=== PATIENT | male | born 1945 | race Caucasian/White ===

== ENCOUNTER → 2017-03-04 | Outpatient (CLI) | payer MEDICARE, OTHER ==
[~2017-03-04] MED LIST: ALLO300T PO; AMOX1TAB61 PO; DEXA4TAB PO; MELO15TA23 PO; OMEG500C PO; OXYC1TAB9 PO; SILD100T PO; [UNRECOGNIZED DRUG - CODE] PO
--- NOTE | 2017-03-04 12:19 | RAD ---
Exam performed: 2 views of the chest. Indication: CHRONIC OBSTRUCTIVE PULMONARY DISEASE. Date of Service:03/04/2017 2:00 AM . Comparison : None available. Findings: PA and lateral radiographs of the chest reveal a normal cardiomediastinal contour. The lungs are clear. No pleural fluid is seen. The visualized osseous structures are unremarkable. Impression: No acute cardiopulmonary process seen..
== END | disposition home or self-care (01) ==
LOC: LAB 11:32
PROVIDERS: ATTEND Internal Medicine Critical Care Medicine
DX: J44.9 Chronic obstructive pulmonary disease, unspecified (principal)
CPT/HCPCS: 71020

== ENCOUNTER → 2017-07-12 | Outpatient (CLI) | payer MEDICARE, OTHER ==
[2017-07-12] MEDS: LIDOCAINE 1% Multi-Dose 20 ML VIAL. ID (10:40)
[2017-07-12] MEDS: IOHEXOL 300 MG/ML 100ML VIAL. IT (10:40)
== END | disposition home or self-care (01) ==
LOC: KCIC 09:49
DX: M48.02 Spinal stenosis, cervical region (principal); M50.21 Other cervical disc displacement, high cervical region; M47.892 Other spondylosis, cervical region; M12.88 Other specific arthropathies, not elsewhere classified, other specified site; W19.XXXA Unspecified fall, initial encounter; Y93.89 Activity, other specified; Y92.89 Other specified places as the place of occurrence of the external cause; Y99.8 Other external cause status
CPT/HCPCS: 72126; 72240; Q9967

== ENCOUNTER → 2017-08-02 | Outpatient (CLI) | payer MEDICARE, OTHER | END | disposition home or self-care (01) | LOC: KCIC CT 10:04 | DX: R51 Headache (principal); R42 Dizziness and giddiness; H53.8 Other visual disturbances | CPT/HCPCS: 70450 ==

== ENCOUNTER → 2018-03-21 | Outpatient (CLI) | payer MEDICARE, OTHER ==
[~2018-03-21] MED LIST changes: +OXYC-411 PO; -OXYC1TAB9 PO
--- NOTE | 2018-03-21 17:32 | KCIC ---
CT CHEST WO CONTRAST Indication: Interstitial lung disease, productive cough, worked around asbestos for 30 years Technique: Noncontrast CT imaging was performed of the chest, multiplanar reconstruction images submitted. One or more of the following individualized dose reduction techniques were utilized for this examination: 1. Automated exposure control 2. Adjustment of the mA and/or kV according to patient size 3. Use of iterative reconstruction technique. Contrast: None Comparison: None Findings: There is no pleural or pericardial effusion, pneumothorax, infiltrate, honeycombing. No appreciable septal thickening is identified. Major airways are patent. No calcified pleural plaques are identified. There is coronary calcification. Tubular ascending thoracic aorta is dilated about 4.1 cm. There is cholelithiasis. There is left renal calculus about 0.8 cm. 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 There are thoracic spinal stimulator leads. There is shared origin of the brachiocephalic and left common carotid arteries. Minimal density in the trachea is probably due to mucus. IMPRESSION: 1. There is no infiltrate or pleural plaque. 2. There is coronary calcification. 3. There is dilatation of the ascending thoracic aorta 4.1 cm. 4. There is cholelithiasis. 5. There is left renal calculus. 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 Electronically signed by: Jamshid Garza MD (03/21/2018 5:29 PM) [email or web address]
== END | disposition home or self-care (01) ==
LOC: KCIC CT 10:43
PROVIDERS: ATTEND Internal Medicine Critical Care Medicine
DX: I25.10 Atherosclerotic heart disease of native coronary artery without angina pectoris (principal); K80.20 Calculus of gallbladder without cholecystitis without obstruction; N20.0 Calculus of kidney; J44.9 Chronic obstructive pulmonary disease, unspecified; M17.9 Osteoarthritis of knee, unspecified
CPT/HCPCS: 71250

== ENCOUNTER → 2018-06-15 | Outpatient (CLI) | payer MEDICARE, OTHER ==
--- NOTE | 2018-06-15 11:16 | RAD ---
CHEST PA LATERAL Clinical indications: PRE OP FOR KNEE REPLACEMENT ON 07/11/18, HX OF HYPERTENSION The patient is 72 years old. COMPARISON: March 04, 2017. Findings: No acute lung infiltrate or pleural effusion or pulmonary edema or lung mass or pneumothorax is seen. Thoracic spinal canal stimulator device is again evident. The heart size, pulmonary vasculature, mediastinum and both mando are unremarkable. The osseous structures appear intact. Impression: No acute radiographic abnormality is seen. Electronically signed by: Hari Hall MD (06/15/2018 11:12 AM) [facility]
== END | disposition home or self-care (01) ==
LOC: LAB 10:15
PROVIDERS: ATTEND Internal Medicine
DX: Z01.818 Encounter for other preprocedural examination (principal); M17.0 Bilateral primary osteoarthritis of knee; I10 Essential (primary) hypertension
CPT/HCPCS: 71046

== ENCOUNTER → 2018-06-23 | Outpatient (CLI) | payer MEDICARE, OTHER ==
--- NOTE | 2018-06-23 10:40 | CARD ---
MR#: [id number] Date of Study: 06/23/2018 Ordering Physician: SENAIT MUIR, Referring Physician: SENAIT MUIR, Tech: Crystal Lagos APPROVED REPORT EXAM: Two-dimensional and M-mode echocardiogram with Doppler and color Doppler. Other Information Quality : AverageHR: 70bpm INDICATION Pre-Op RISK FACTORS Hypertension 2D DIMENSIONS RVDd3.2 (2.9-3.5cm)Left Atrium(2D)3.5 (1.6-4.0cm) IVSd1.0 (0.7-1.1cm)Aortic Root(2D)3.5 (2.0-3.7cm) LVDd5.7 (3.9-5.9cm)LVOT Diameter2.2 (1.8-2.4cm) PWd1.0 (0.7-1.1cm)LVDs2.3 (2.5-4.0cm) FS (%) 59.0 %SV142.7 ml LVEF(%)88.2 (>50%) Aortic Valve AoV Peak Hair.167.0cm/sAoV VTI33.3cm AO Peak GR.11.2mmHgLVOT Peak Hair.134.7cm/s LVOT VTI 29.42cmAO Mean GR.7mmHg MAYCO (VMAX)2.14ww1DUG (VTI)3.37cm2 Mitral Valve MV E Vtfjslvg45.8cm/sMV DECEL LRSB152ua MV A Wnmldnac24.2cm/sMV SDF46tc E/A Ratio1.4MVA (PHT)4.10cm2 TDI E/Lateral E'6.9E/Medial E'9.2 Pulmonary Valve PV Peak Lyxynvwn059.0cm/sPV Peak Grad.6mmHg Tricuspid Valve TR P. Iqkxfzql621ym/sRAP FHHXEUIC0unVu TR Peak Gr.37ylZcGHJZ95ppFc Pulmonary Vein S1 Cmnyrmxh84.5cm/sD2 Pvnarnmz97.1cm/s PVa dwktdxqf381tkzg LEFT VENTRICLE The left ventricle is normal size. There is normal left ventricular wall thickness. The left ventricu lar systolic function is normal. The Ejection Fraction is 55-60%. There is normal LV segmental wall m otion. The left ventricular diastolic function and filling is normal for age. RIGHT VENTRICLE The right ventricle is normal size. There is normal right ventricular wall thickness. The right ventr icular systolic function is normal. ATRIA The left atrium is mildly dilated. The right atrium size is normal. The interatrial septum is intact with no evidence for an atrial septal defect or patent foramen ovale as noted on 2-D or Doppler imagi ng. AORTIC VALVE The aortic valve is normal in structure and function. Doppler and Color Flow revealed trace aortic re gurgitation. There is no significant aortic valvular stenosis. MITRAL VALVE The mitral valve is normal in structure and function. There is no evidence of mitral valve prolapse. There is no mitral valve stenosis. Doppler and Color-flow revealed trace mitral regurgitation. TRICUSPID VALVE The tricuspid valve is normal in structure and function. Doppler and Color Flow revealed trace tricus pid regurgitation. There is no tricuspid valve stenosis. PULMONIC VALVE The pulmonic valve is not well visualized. Doppler and Color Flow revealed mild pulmonic valvular reg urgitation. GREAT VESSELS The aortic root is normal in size. Normal pulmonary venous flow (Doppler). The IVC is normal in size and collapses >50% with inspiration. PERICARDIAL EFFUSION There is no evidence of significant pericardial effusion. Critical Notification Critical Value: No <Conclusion> The left ventricular systolic function is normal. The Ejection Fraction is 55-60%. There is normal LV segmental wall motion. Trace mitral regurgitation. Trace tricuspid regurgitation. There is no evidence of significant pericardial effusion. Signed by : Senait Muir, Electronically Approved : 06/23/2018 10:38:57
== END | disposition home or self-care (01) ==
LOC: ECHO 09:07
PROVIDERS: ATTEND Internal Medicine Cardiovascular Disease
DX: Z01.810 Encounter for preprocedural cardiovascular examination (principal); I37.1 Nonrheumatic pulmonary valve insufficiency; I10 Essential (primary) hypertension
CPT/HCPCS: 93306

== ENCOUNTER → 2018-06-27 | Outpatient (CLI) | payer MEDICARE, OTHER ==
[~2018-06-27] MED LIST changes: +REGADENOSON 0.4 MG/5 ML DISP.SYRIN. IV ONE
--- NOTE | 2018-06-27 15:10 | RAD ---
MR#: [id number] Date of Study: 06/27/2018 Ordering Physician: SENAIT MOTTA, Referring Physician: SHREE SELBY Tech: SUSAN Perea, ARRT (R) (N) APPROVED REPORT Test Type: Pharmacological Stress Nurse/Tech: Deb Correia RN Test Indications: Preop clearance Cardiac History: Hypertension,COPD Medications: See Electronic Medical Record Medical History: See Electronic Medical Record Resting ECG: SR Resting Heart Rate: 64 bpm Resting Blood Pressure: 126/78mmHg Pretest Chest Pain: No chest pain Nurse/Tech Notes S1,S2 and lungs are clear to auscultation. Consent: The procedure was explained to the patient in lay terms. Informed consent was witnessed. Brian eout was entered into [employer] [facility] [employer]. History and Stress Test performed by DEAN Lainez Pharm. Details Pharmacologic stress testing was performed using 0.4mg per 5ml of regadenoson given intravenously ove r 7-10 seconds. Stress Symptoms Dizziness POST EXERCISE Reason for Termination: Infusion complete Target HR: No Max HR: 94 bpm Max Blood Pressure: 141/66mmHg Blood Pressure response to exercise: Normal blood pressure response during stress. Heart Rate response to exercise: WNL Chest Pain: No. Arrhythmia: No. ST Change: No. INTERPRETATION Stress EKG Conclusion: No evidence of stress induced EKG changes. Imaging Protocol IMAGE PROTOCOL: Rest Tc-99m/stress Tc-99m 1 day Rest: Stress: Viability: Radiopharm.Tc99m HgrrtpvrbJk70a Sestamibi Dose12.4mCi 33.3mCi Img Date 06/27/2018 06/27/2018 Inj-Img Qqcb98bld. 60min. Rest Admin Site:IV - Left AntecubitalAdministrator:DEAN Lainez Stress Admin Site: IV - Left AntecubitalAdministrator: DEAN Lainez STRESS DATA End Diast. Vol.83.0mlAv. Heart Rate87.0bpm LVEDV index BSA35.0mlCardiac Output0.0L/min End Syst. Vol.21.0mlCO Index BSA0.0L/min LVESV index BSA9.0mlMyocardial Xhge584.0g Eject. Pvqixqoe96.0% Stress Scores Regional WT0.00Summed WT0.00 Regional WM0.00Summed WM0.00 The rest and stress images show normal perfusion, normal contraction and thickening. LV Perf. Quant 17 Seg. SSS2.00 17 Seg. SRS4.00 17 Seg. SDS1.00 Stress Defect Extent (% LAD)0.00Rest Defect Extent (% LAD)0.00Rev. Defect Extent (% LAD)0.00 Stress Defect Extent (% LCX) 10.00Rest Defect Extent (% LCX)22.50Rev. Defect Extent (% LCX)5.00 Stress Defect Extent (% RCA)0.00Rest Defect Extent (% RCA)11.10Rev. Defect Extent (% RCA)0.00 Stress Defect Extent (% ROLY)1.70Rest Defect Extent (% ROLY)7.40Rev. Defect Extent (% ROLY)0.90 Other Information Quality:Good Risk Assessment: Low Risk Conclusion 1. No evidence of stress induced EKG changes 2. Normal perfusion at stress/rest. 3. Normal EF at > 70% 4. Low risk study Signed by : Prince Guevara, Electronically Approved : 06/27/2018 15:09:14
== END | disposition home or self-care (01) ==
LOC: NM 09:08
PROVIDERS: ATTEND Internal Medicine Cardiovascular Disease
DX: Z01.810 Encounter for preprocedural cardiovascular examination (principal); I10 Essential (primary) hypertension; J44.9 Chronic obstructive pulmonary disease, unspecified
CPT/HCPCS: 78452; 93017; 96374; A9500; J2785

== ENCOUNTER → 2018-09-07 | Outpatient (CLI) | payer MEDICARE, OTHER ==
[~2018-09-07] MED LIST changes: -REGADENOSON 0.4 MG/5 ML DISP.SYRIN. IV ONE
--- NOTE | 2018-09-07 13:11 | KCIC ---
EXAM: CT Abdomen and Pelvis without IV contrast CLINICAL HISTORY: Back pain, hematuria, evaluate for kidney stone. COMPARISON: None available TECHNIQUE: Helical CT of the abdomen and pelvis without intravenous contrast. Axial, coronal and sagittal reformatted images were generated. PQRS compliance statement - One or more of the following individualized dose reduction techniques were utilized for this study: 1. Automated exposure control 2. Adjustment of the mA and/or kV according to patient size 3. Use of iterative reconstruction technique FINDINGS: Lack of intravenous contrast limits evaluation of solid organs, vasculature, and lymph nodes. Lower chest: Lung bases are grossly clear. Abdomen and Pelvis: No focal liver lesion. Calcified gallstones are seen. No pericholecystic fluid or definite wall thickening. No biliary ductal dilatation. Spleen is unremarkable. Adrenal glands and pancreas are unremarkable. Punctate bilateral nonobstructing renal calculi are seen. A 4 mm right lower pole nonobstructing renal calculus is seen. A 1.2 cm left ureteral calculus is seen resulting in mild left hydronephrosis and hydroureter. Fat-containing lesion in the right interpolar kidney likely angiomyolipoma. No focal renal lesion. No hydronephrosis. Small bladder diverticulum is seen. Fat infiltration about the bladder with mild wall thickening may be seen with cystitis. Appendix is normal. No small or large bowel dilatation. Moderate colonic stool content. Colonic diverticulosis without evidence for acute diverticulitis. No abdominal or pelvic lymphadenopathy. No abdominal or pelvic ascites. Atherosclerotic calcifications of aorta are seen. Fat-containing inguinal hernias bilaterally. Bones: Degenerative changes of the spine are seen. Posterior spinal fusion lower lumbar spine L4-5. IMPRESSION: 1. A 1.2 cm left ureteral calculus results in mild hydronephrosis and hydroureter. 2. Several additional bilateral nonobstructing renal calculi. No 3. Wall thickening and fat infiltration about the bladder suggests cystitis. 4. Cholelithiasis 5. Colonic diverticulosis without evidence for acute diverticulitis. Electronically signed by: Tigre Motta MD (09/07/2018 1:08 PM) [facility]
== END | disposition home or self-care (01) ==
LOC: KCIC CT 12:30
PROVIDERS: ATTEND Urology
DX: N13.2 Hydronephrosis with renal and ureteral calculous obstruction (principal); N13.4 Hydroureter; K80.20 Calculus of gallbladder without cholecystitis without obstruction; K57.30 Diverticulosis of large intestine without perforation or abscess without bleeding
CPT/HCPCS: 74176

== ENCOUNTER → 2020-01-31 | Outpatient (CLI) | payer MEDICARE, OTHER ==
[~2020-01-31] MED LIST changes: -OXYC-411 PO; +OXYC1TAB20 PO
--- NOTE | 2020-01-31 17:21 | KCIC ---
EXAM: Abdomen and pelvis CT without intravenous contrast. HISTORY: Ureteral stone. TECHNIQUE: Computed tomographic images of the abdomen and pelvis were obtained without contrast. Multiplanar reformatting was performed. *One or more of the following individualized dose reduction techniques were utilized for this examination: 1. Automated exposure control. 2. Adjustment of the mA and/or kV according to patient size. 3. Use of iterative reconstruction technique. COMPARISON: 09/07/2018. FINDINGS: Evaluation of the lower thorax is unremarkable. No hepatic lesion is seen. There is cholelithiasis. The pancreas, spleen and adrenal glands are unremarkable. There is no evidence of bowel obstruction. There is extensive colonic diverticulosis. There is no convincing diverticulitis. There is a 1.2 cm angiomyolipoma within the lateral mid zone of the right kidney. There are nonobstructing bilateral renal stones, the largest which measures 3 mm within the left lower pole. The previously demonstrated left ureteral stone is no longer seen. However, there are new calcifications within the bladder measuring 2 mm at the ureterovesical junction and 2 mm within the posterior midline. There is urinary bladder wall thickening. There is a small left bladder diverticulum measuring 1.5 cm. The prostate results in slight deformation of the bladder base. There is aortic and aortic branch vessel atherosclerosis. There is no aneurysm. There is no lymphadenopathy. There are degenerative changes involving the spine. There is instrumented fusion and laminectomy decompression at the lower lumbar levels. No suspicious osseous lesion is seen. There is foraminal and central canal stenosis at multiple lumbar levels, stable in appearance. IMPRESSION: 1. Left greater than right nephrolithiasis. No obstructing renal stone is seen in the previously demonstrated distal left ureteral stone is no longer seen. There are 2 mm stones or stone fragments within the bladder, one of which is at the uterovesical junction. 2. Bladder wall thickening and small left bladder diverticulum. This may be due to chronic outlet obstruction given a prominent prostate. Correlate with urinalysis to exclude cystitis. 3. 1.5 cm right renal angiomyolipoma. 4. Cholelithiasis. 5. Colonic diverticulosis. Electronically signed by: Priya Jaime MD (01/31/2020 5:18 PM) [id number]
== END ==
LOC: KCIC CT 12:41
PROVIDERS: ATTEND Urology
DX: N20.1 Calculus of ureter (principal); N20.0 Calculus of kidney; K57.30 Diverticulosis of large intestine without perforation or abscess without bleeding; K80.20 Calculus of gallbladder without cholecystitis without obstruction; D17.71 Benign lipomatous neoplasm of kidney; N32.3 Diverticulum of bladder
CPT/HCPCS: 74176

== ENCOUNTER → 2020-02-23 | Outpatient (CLI) | payer MEDICARE ==
--- NOTE | 2020-02-23 14:21 | KCIC ---
EXAM: HIP LEFT 1 VIEW WITH PELVIS. HISTORY: Left hip pain. COMPARISON: None. FINDINGS: A transverse fracture of the sacrum is suspected at the S4 level. This appears subacute based on surrounding sclerosis. There is moderately decreased femoral head/neck offset anteriorly on the left. It appears mildly decreased superolaterally on the right. There is chondrocalcinosis of the left acetabular labrum. A small os acetabulum is noted on the right. There is mild superior joint space narrowing at the right hip. Left hip joint spaces appear maintained. L4-5 instrumented anterior and posterior fusion changes are partially visualized. A generator is partially visualized along the left flank. IMPRESSION: 1. Findings consistent with a subacute transverse fracture of the S4 level. A lateral view of the sacrum could confirm this. 2. 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 Mild right hip osteoarthritis. 4. Chondrocalcinosis of the left acetabular labrum. Electronically signed by: Camron Caba MD (02/23/2020 2:19 PM) [id number]
== END | disposition home or self-care (01) ==
LOC: KCIC 10:33
PROVIDERS: ATTEND Internal Medicine
DX: M11.252 Other chondrocalcinosis, left hip (principal); M16.11 Unilateral primary osteoarthritis, right hip
CPT/HCPCS: 73501

== ENCOUNTER → 2020-02-28 | Outpatient (CLI) | payer MEDICARE ==
--- NOTE | 2020-02-29 08:38 | KCIC ---
Examination: 2 views of the sacrum and coccyx HISTORY: History of S4 fracture COMPARISON: 02/23/2020. Findings/ impression: Mild anterolisthesis of S1 on S2. Obvious fracture line is not evident however evaluation is limited due to overlapping bone structures. If pain persists consider CT or MRI for better evaluation. Electronically signed by: Livan Galindo MD (02/29/2020 8:35 AM) [id number]
== END ==
LOC: KCIC 12:43
PROVIDERS: ATTEND Internal Medicine
DX: S32.10XA Unspecified fracture of sacrum, initial encounter for closed fracture (principal); X58.XXXA Exposure to other specified factors, initial encounter; Y93.89 Activity, other specified; Y92.89 Other specified places as the place of occurrence of the external cause; Y99.8 Other external cause status
CPT/HCPCS: 72220

== ENCOUNTER → 2020-03-08 | Outpatient (CLI) | payer MEDICARE ==
--- NOTE | 2020-03-08 15:25 | KCIC ---
EXAM: CT Lumbar Spine without IV contrast INDICATION: Reason: LOW BACK PAIN, LEFT RADICULOPATHY / Spl. Instructions: / History: Chronic pain, previous surgery, spinal cord stimulator TECHNIQUE: Multi-detector row CT images were obtained through the lumbar spine without the use of IV contrast. Post-processing sagittal and coronal reconstructed images were obtained for interpretation. All CT scans performed at this facility utilize dose optimization techniques as appropriate to the exam, including the following: Automated exposure control and adjustment of the mA and/or KV according to patient size (this includes techniques or standardized protocols for targeted exams where dose is indication/reason for exam). COMPARISON: Lumbosacral spine x-rays 02/28/2020, renal stone protocol abdomen pelvis CT 01/31/2020 FINDINGS: The lowest fully formed disc is referred to as the L5-S1 level. ALIGNMENT: Lumbar spinal alignment shows straightening. No anterolisthesis or retrolisthesis is appreciated however there is there is mild rightward lateral listhesis of L2 on L3 7 mm, contributing to levoscoliosis of the lumbar spine, apex at L3-L4.. OSSEOUS: Bones show mild demineralization and endplate osteophytic spurring and sclerosis but no fracture or aggressive appearing osseous lesions are seen. DISC SPACES: At T12-L1, no stenosis. No significant degenerative change. At L1-L2, mild disc space narrowing. No central canal or foraminal stenosis. At L2-L3 bulky right-sided facet hypertrophy, endplate sclerosis with disc space narrowing and subchondral cystic change is present along with a disc osteophyte complex asymmetric to the right. Together these result in severe right foraminal stenosis and moderate left foraminal stenosis. Moderate central canal stenosis is also present. At L3-L4, disc osteophyte complex with asymmetric narrowing on the right, including avoo-fv-vcag contact, subchondral sclerosis and asymmetric disc space narrowing in association with facet hypertrophy results in moderate right foraminal stenosis and only mild left foraminal stenosis. Transverse narrowing of the central canal is present but there has been a posterior decompression with laminectomy at L3, resulting in patency of the central canal. At L4-L5, there is been an interbody fusion with well incorporated graft. There is loss of height at this disc space however an ossified disc material is present, resulting in mild left foraminal stenosis and moderate right foraminal stenosis. Posterior decompressive surgical changes with bilateral laminectomy at L4 are present. Fito and pedicle screw construct posterior fusion is also noted at this level with apparent satisfactory positioning of the pedicle screws and no evidence of hardware loosening, migration or failure. At L5-S1, disc osteophyte complex with ossification in the disc along with mild bilateral facet hypertrophic change results in moderate bilateral foraminal stenoses and moderate central canal narrowing. Bilateral sacroiliac joints are unremarkable. SOFT TISSUES: Scattered atherosclerotic calcifications in the abdominal aorta. IMPRESSION: Multilevel lumbar spinal degenerative spondylosis as described with posterior decompression at L3 and L4 and fito and pedicle screw construct fusion at L4-L5 with interbody graft as described. No fracture or aggressive appearing osseous lesions noted. Electronically signed by: Aby Dejesus MD (03/08/2020 3:23 PM) [id number]
== END | disposition home or self-care (01) ==
LOC: KCIC CT 10:22
PROVIDERS: ATTEND Internal Medicine
DX: M47.26 Other spondylosis with radiculopathy, lumbar region (principal); M43.16 Spondylolisthesis, lumbar region; M25.78 Osteophyte, vertebrae; M46.06 Spinal enthesopathy, lumbar region; M41.86 Other forms of scoliosis, lumbar region; M81.8 Other osteoporosis without current pathological fracture; G95.89 Other specified diseases of spinal cord; I70.0 Atherosclerosis of aorta
CPT/HCPCS: 72131

== ENCOUNTER → 2020-06-07 | Outpatient (CLI) | payer OTHER, MEDICARE ==
--- NOTE | 2020-06-07 17:26 | KCIC ---
EXAM: Pelvis and bilateral hips, 5 views; left shoulder, 3 views; left femur, 2 views. HISTORY: Trauma. Pain. COMPARISON: 02/23/2020. FINDINGS: Pelvis and bilateral hips: A frontal view the pelvis and frontal and frog-leg views of both hips are obtained. There is lateral hip joint space narrowing with degenerative subchondral sclerosis and marginal acetabular and femoral head spurring. There is a right os acetabulum. There is left hip labral calcification. There are multiple pelvic fluid was. There is degenerative and postoperative change involving the lumbar spine. There is a generator within the left flank, partially included on the lvtqc-tx-nqwb. Left shoulder: 3 views of the left shoulder obtained. There is mild left acromioclavicular osteoarthritis with a small chronic fragmented spur. There is no acute fracture, dislocation or subluxation. There are dorsal column stimulator leads at the inferior margin of the belzp-tc-xmcr. Left femur: 2 views left femur are obtained. These are centered at the level of the knee. The proximal femur is excluded from the fwfbr-gs-awwq. There is left knee arthroplasty in expected position. There is no evidence of arthroplasty loosening. There are chronic bone fragments along the superior patella and there are joint loose bodies. There is a trace joint effusion. IMPRESSION: 1. Mild lateral hip osteoarthritis and left acromioclavicular osteoarthritis. 2. Degenerative and postoperative changes involving the lumbar spine, not formally assessed on this exam. 3. Left knee arthroplasty and trace left knee effusion. 4. No acute osseous finding. Electronically signed by: Priya Jaime MD (06/07/2020 5:22 PM) [facility]
--- NOTE | 2020-06-07 17:26 | KCIC ---
EXAM: Pelvis and bilateral hips, 5 views; left shoulder, 3 views; left femur, 2 views. HISTORY: Trauma. Pain. COMPARISON: 02/23/2020. FINDINGS: Pelvis and bilateral hips: A frontal view the pelvis and frontal and frog-leg views of both hips are obtained. There is lateral hip joint space narrowing with degenerative subchondral sclerosis and marginal acetabular and femoral head spurring. There is a right os acetabulum. There is left hip labral calcification. There are multiple pelvic fluid was. There is degenerative and postoperative change involving the lumbar spine. There is a generator within the left flank, partially included on the oeggi-sm-nyzm. Left shoulder: 3 views of the left shoulder obtained. There is mild left acromioclavicular osteoarthritis with a small chronic fragmented spur. There is no acute fracture, dislocation or subluxation. There are dorsal column stimulator leads at the inferior margin of the flonc-hr-npxn. Left femur: 2 views left femur are obtained. These are centered at the level of the knee. The proximal femur is excluded from the lqhhf-ge-qall. There is left knee arthroplasty in expected position. There is no evidence of arthroplasty loosening. There are chronic bone fragments along the superior patella and there are joint loose bodies. There is a trace joint effusion. IMPRESSION: 1. Mild lateral hip osteoarthritis and left acromioclavicular osteoarthritis. 2. Degenerative and postoperative changes involving the lumbar spine, not formally assessed on this exam. 3. Left knee arthroplasty and trace left knee effusion. 4. No acute osseous finding. Electronically signed by: Priya Jaime MD (06/07/2020 5:22 PM) [facility]
--- NOTE | 2020-06-07 17:26 | KCIC ---
EXAM: Pelvis and bilateral hips, 5 views; left shoulder, 3 views; left femur, 2 views. HISTORY: Trauma. Pain. COMPARISON: 02/23/2020. FINDINGS: Pelvis and bilateral hips: A frontal view the pelvis and frontal and frog-leg views of both hips are obtained. There is lateral hip joint space narrowing with degenerative subchondral sclerosis and marginal acetabular and femoral head spurring. There is a right os acetabulum. There is left hip labral calcification. There are multiple pelvic fluid was. There is degenerative and postoperative change involving the lumbar spine. There is a generator within the left flank, partially included on the hytxv-hk-anjy. Left shoulder: 3 views of the left shoulder obtained. There is mild left acromioclavicular osteoarthritis with a small chronic fragmented spur. There is no acute fracture, dislocation or subluxation. There are dorsal column stimulator leads at the inferior margin of the lscpq-kz-flty. Left femur: 2 views left femur are obtained. These are centered at the level of the knee. The proximal femur is excluded from the dwgsx-fk-lnbr. There is left knee arthroplasty in expected position. There is no evidence of arthroplasty loosening. There are chronic bone fragments along the superior patella and there are joint loose bodies. There is a trace joint effusion. IMPRESSION: 1. Mild lateral hip osteoarthritis and left acromioclavicular osteoarthritis. 2. Degenerative and postoperative changes involving the lumbar spine, not formally assessed on this exam. 3. Left knee arthroplasty and trace left knee effusion. 4. No acute osseous finding. Electronically signed by: Priya Jaime MD (06/07/2020 5:22 PM) [facility]
== END ==
LOC: KCIC 15:45
PROVIDERS: ATTEND Internal Medicine
DX: M19.012 Primary osteoarthritis, left shoulder (principal); M16.0 Bilateral primary osteoarthritis of hip; M17.0 Bilateral primary osteoarthritis of knee; Z98.1 Arthrodesis status; Z96.612 Presence of left artificial shoulder joint; M47.816 Spondylosis without myelopathy or radiculopathy, lumbar region
CPT/HCPCS: 73030; 73521; 73562

== ENCOUNTER → 2020-06-10 | Outpatient (CLI) | payer OTHER, MEDICARE ==
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
== END ==
LOC: KCIC CT 13:00
PROVIDERS: ATTEND Internal Medicine
DX: M47.816 Spondylosis without myelopathy or radiculopathy, lumbar region (principal); M47.812 Spondylosis without myelopathy or radiculopathy, cervical region; M48.061 Spinal stenosis, lumbar region without neurogenic claudication; M51.44 Schmorl's nodes, thoracic region; R51.9 Headache, unspecified; R42 Dizziness and giddiness; M54.5 Low back pain; M43.8X6 Other specified deforming dorsopathies, lumbar region; M25.78 Osteophyte, vertebrae; M41.86 Other forms of scoliosis, lumbar region; I77.811 Abdominal aortic ectasia; M25.511 Pain in right shoulder; M25.512 Pain in left shoulder
CPT/HCPCS: 70450; 72125; 72128; 72131

== ENCOUNTER → 2020-09-02 | Outpatient (CLI) | payer MEDICARE, OTHER ==
--- NOTE | 2020-09-02 13:49 | CARD ---
MR#: [id number] Date of Study: 09/02/2020 Ordering Physician: SENAIT MOTTA, Referring Physician: SENAIT MOTTA Tech: Miriam Moctezuma [facility] APPROVED REPORT EXAM: Two-dimensional and M-mode echocardiogram with Doppler and color Doppler. Other Information Quality : AverageHR: 60bpm Rhythm : NSR INDICATION Hypertension/HCVD RISK FACTORS Hypertension 2D DIMENSIONS Left Atrium(2D)4.1 (1.6-4.0cm)IVSd1.2 (0.7-1.1cm) Aortic Root(2D)4.1 (2.0-3.7cm)LVDd5.2 (3.9-5.9cm) LVOT Diameter2.5 (1.8-2.4cm)PWd1.2 (0.7-1.1cm) IVSs1.7 (0.8-1.2cm)LVDs3.3 (2.5-4.0cm) FS (%) 36.9 %PWs1.9 (0.8-1.2cm) SV87.3 mlLVEF(%)66.4 (>50%) Aortic Valve AoV Peak Hair.131.4cm/sAoV VTI29.2cm AO Peak GR.6.9mmHgLVOT Peak Hair.114.6cm/s LVOT VTI 25.77cmAO Mean GR.4mmHg MAYCO (VMAX)4.95kf8IIN (VTI)4.33cm2 Mitral Valve MV E Plitirde49.7cm/sMV DECEL OKZY722cd MV A Pibigscr47.7cm/sMV MNL67lu E/A Ratio1.0MVA (PHT)2.99cm2 TDI E/Lateral E'7.3E/Medial E'6.6 Pulmonary Valve PV Peak Oeajbnsc178.2cm/sPV Peak Grad.4mmHg Tricuspid Valve TR P. Zhgugneo048to/sTR Peak Gr.27mmHg LEFT VENTRICLE The left ventricle is normal size. There is mild concentric left ventricular hypertrophy. The left ve ntricular systolic function is normal. Estimated ejection fraction 55-60%. There is normal LV segmen declan wall motion. The left ventricular diastolic function and filling is normal for age. RIGHT VENTRICLE The right ventricle is normal size. There is normal right ventricular wall thickness. The right ventr icular systolic function is normal. ATRIA The left atrium size is normal. The right atrium size is normal. The interatrial septum is intact wit h no evidence for an atrial septal defect or patent foramen ovale as noted on 2-D or Doppler imaging. AORTIC VALVE The aortic valve is normal in structure and function. Doppler and Color Flow revealed mild aortic reg urgitation. There is no significant aortic valvular stenosis. MITRAL VALVE The mitral valve is normal in structure and function. There is no evidence of mitral valve prolapse. There is no mitral valve stenosis. Doppler and Color-flow revealed mild mitral regurgitation. TRICUSPID VALVE The tricuspid valve is normal in structure and function. Doppler and Color Flow revealed mild tricusp id regurgitation. Estimated PAP 32 mmHg. There is no tricuspid valve stenosis. PULMONIC VALVE The pulmonary valve is normal in structure and function. Doppler and Color Flow revealed mild pulmoni c valvular regurgitation. GREAT VESSELS The aortic root is normal in size. The ascending aorta is normal in size. The IVC is normal in size a nd collapses >50% with inspiration. PERICARDIAL EFFUSION There is no evidence of significant pericardial effusion. Critical Notification Critical Value: No <Conclusion> The left ventricular systolic function is normal. Estimated ejection fraction 55-60%. There is normal LV segmental wall motion. Mild aortic regurgitation. Mild mitral regurgitation. Mild tricuspid regurgitation. Estimated PAP 32 mmHg. There is no evidence of significant pericardial effusion. Signed by : Senait Motta, Electronically Approved : 09/02/2020 13:49:20
== END ==
LOC: ECHO 10:38
PROVIDERS: ATTEND Internal Medicine Cardiovascular Disease
DX: I08.8 Other rheumatic multiple valve diseases (principal)
CPT/HCPCS: 93306

== ENCOUNTER → 2020-09-17 | Outpatient (CLI) | payer MEDICARE, OTHER ==
[~2020-09-17] MED LIST changes: +CONTRAST GIVEN. MC PRN; +IOHEXOL 350 MG/ML 100 ML VIAL. IV ONE
[2020-09-17 09:01] LABS: GFR 73.2
--- NOTE | 2020-09-17 12:18 | RAD ---
CT angiography of the chest 09/17/2020 9:04 AM Indication: Aortic dilatation/ Spl. Instructions: OMNI 350 INJ 90MLS / History: Technique: Multiple contiguous axial images were obtained through the chest after administration of i ntravenous iodinated contrast. Coronal, sagittal, and 3-D MIP reformations were created. Comparison: CT of the chest March 21, 2018 Findings: A "bovine" configuration of the abdominal aortic arch is noted. Motion artifact mildly limi ts detail of vascular structures. The ascending thoracic aorta is ectatic measuring 3.8 cm at the lev el of the main pulmonary artery. The sinotubular junction of the thoracic aorta measures 2.75 cm. At the level of the left subclavian artery the thoracic aorta measures 3 cm. Visualized arch vessels are grossly patent. No evidence of dissection is seen. The descending thoracic aorta is normal in course and caliber. Limited visualization of the upper abdominal arteries demonstrates of this to smaller right renal art eries. Cholelithiasis is noted. Small area of enhancement in the lateral right liver measuring 1.2 cm in size is seen. (Axial image 93). The heart is top normal in size. Coronary calcification is noted . Scattered small mediastinal lymph nodes are noted without evidence of pathologically enlarged adeno john. No pneumothorax, effusion, or focal infiltrate is identified. There is a thoracic dorsal colum n stimulator. No acute osseous changes are identified. IMPRESSION: 1.Ectasia of the ascending thoracic aorta measuring up to 3.8 cm at the level of the main pulmonary a rtery. 2. Cholelithiasis 3. Nonspecific flash filling type enhancement lateral right liver measuring up to 1.2 cm in diameter . If the patient is considered high risk, MRI is recommended for further characterization, if the pa tient is considered low risk no further follow up is required. Low-risk patient: no known primary malignancy, hepatic dysfunction, or hepatic risk factors including hepatitis, nonalcoholic steatohepatitis, alcoholism, sclerosing cholangitis, primary biliary cirrhos is, choledochal cysts, hemochromatosis and other hereditary hepatic conditions, and anabolic steroid use High-risk patient: known primary malignancy with a propensity to metastasize to the liver, cirrhosis, and/or other hepatic risk factors as above. 4. Coronary calcification CT DOSING PQRS STATEMENT: One or more of the following individualized dose reduction techniques were utilized for this examinat ion: 1. Automated exposure control 2. Adjustment of the mA and/or kV according to patient size 3. Use of iterative reconstruction technique Electronically signed by: Cyrus Wesley MD (09/17/2020 12:16 PM) [facility]
== END ==
LOC: CT 09:03
PROVIDERS: ATTEND Internal Medicine Cardiovascular Disease
DX: I77.810 Thoracic aortic ectasia (principal); K80.20 Calculus of gallbladder without cholecystitis without obstruction; I25.10 Atherosclerotic heart disease of native coronary artery without angina pectoris
CPT/HCPCS: 36415; 71275; 82565; 84520; Q9967

== ENCOUNTER → 2020-09-20 | Outpatient (CLI) | payer MEDICARE, OTHER ==
[~2020-09-20] MED LIST changes: -CONTRAST GIVEN. MC PRN; -IOHEXOL 350 MG/ML 100 ML VIAL. IV ONE
[2020-09-20 15:04] LABS: BASO % 1 % (0-3); EOS # 0.1 x10^3/uL (0.0-0.7); EOS % 1 % (0-3); HEMATOCRIT 43.3 % (39.0-53.0); HEMOGLOBIN 15.2 g/dL (13.0-17.5); LYMPH # 1.1 x10^3/uL (1.0-4.8); LYMPH % 14 % (24-48); MEAN CORPUSCULAR HEMOGLOBIN 35 pg (25-35); MEAN CORPUSCULAR HGB CONC 35 g/dL (31-37); MEAN CORPUSCULAR VOLUME 101 fL (79-100); MONO # 0.8 x10^3/uL (0.0-1.1); MONO % 10 % (0-9); NEUT # 5.6 x10^3/uL (1.8-7.7); NEUT % 74 % (31-73); PLATELET COUNT 203 x10^3/uL (140-400); RED BLOOD COUNT 4.29 x10^6/uL (4.30-5.70); RED CELL DISTRIBUTION WIDTH 12.3 % (11.5-14.5); WHITE BLOOD COUNT 7.6 x10^3/uL (4.0-11.0)
== END ==
LOC: LAB 14:35
PROVIDERS: ATTEND Orthopaedic Surgery
DX: M25.561 Pain in right knee (principal)
CPT/HCPCS: 36415; 85025; 85651; 86140

== ENCOUNTER → 2020-09-30 | Outpatient (CLI) | payer MEDICARE, OTHER ==
[~2020-09-30] MED LIST changes: +REGADENOSON 0.4 MG/5 ML DISP.SYRIN. IV ONE
--- NOTE | 2020-10-01 11:10 | RAD ---
MR#: [id number] Date of Study: 09/30/2020 Ordering Physician: SENAIT MTOTA, Referring Physician: SHREE SELBY Tech: SUSAN Perea, ARRT (R) (N) APPROVED REPORT Test Type: Pharmacological Stress Nurse/Tech: Maren Dow RN Test Indications: dyspnea Cardiac History: HTN Medications: See Electronic Medical Record Medical History: See Electronic Medical Record Resting ECG: SR Resting Heart Rate: 58 bpm Resting Blood Pressure: 142/79mmHg Pretest Chest Pain: None Nurse/Tech Notes lungs CTA, S1S2 Consent: The procedure was explained to the patient in lay terms. Informed consent was witnessed. Brian eout was entered into [employer]. History and Stress Test performed by RT Edel (R) (N) Pharm. Details Pharmacologic stress testing was performed using 0.4mg per 5ml of regadenoson given intravenously ove r 7-10 seconds. Stress Symptoms No chest pain or symptoms. POST EXERCISE Reason for Termination: Infusion complete Max HR: 100 bpm Max Blood Pressure: 145/84mmHg Blood Pressure response to exercise: Normal blood pressure response during stress. Heart Rate response to exercise: normal response Chest Pain: No. Arrhythmia: No. ST Change: No. INTERPRETATION Stress EKG Conclusion: No evidence of stress induced EKG changes. Imaging Protocol IMAGE PROTOCOL: Rest Tc-99m/stress Tc-99m 1 day Rest: Stress: Viability: Radiopharm.Tc99m TvvedcelwOl39b Sestamibi Mvsg92oZb 32.8mCi Img Date 09/30/2020 09/30/2020 Inj-Img Yiob53gjs. 60min. Rest Admin Site:IV - Right AntecubitalAdministrator:RT Edel (R)(N) Stress Admin Site: IV - Right AntecubitalAdministrator: RT Edel (Tania)(N) STRESS DATA End Diast. Vol.111.0mlLVEDV index BSA48.0ml End Syst. Vol.34.0mlLVESV index BSA15.0ml Myocardial Eidd651.0gEject. Khcuzxfe98.0% Stress Scores Regional WT0.00Summed WT0.00 Regional WM0.00Summed WM0.00 LV Perfusion Normal perfusion at stress. Moderate inferior defect at rest, likely artifactual Wall Motion Normal wall motion. EF 70% LV Perf. Quant 17 Seg. SSS4.00 17 Seg. SRS9.00 17 Seg. SDS0.00 Stress Defect Extent (% LAD)3.80Rest Defect Extent (% LAD)6.90Rev. Defect Extent (% LAD)0.00 Stress Defect Extent (% LCX) 11.30Rest Defect Extent (% LCX)22.50Rev. Defect Extent (% LCX)0.00 Stress Defect Extent (% RCA)8.90Rest Defect Extent (% RCA)20.00Rev. Defect Extent (% RCA)0.00 Stress Defect Extent (% ROLY)10.00Rest Defect Extent (% ROLY)15.40Rev. Defect Extent (% ROLY)0.70 Other Information Quality:Fair Risk Assessment: Low Risk Conclusion 1. No evidence of stress induced EKG changes. 2. Normal perfusion at stress. Inferior defect at stress, likely artifact. 3. Normal EF at 70% 4. Low risk study Signed by : Prince Guevara, Electronically Approved : 10/01/2020 11:10:31
== END ==
LOC: NM 09:01
PROVIDERS: ATTEND Internal Medicine Cardiovascular Disease
DX: R06.09 Other forms of dyspnea (principal); I10 Essential (primary) hypertension
CPT/HCPCS: 78452; 93017; A9500; J2785

== ENCOUNTER → 2020-10-21 | Outpatient (CLI) | payer MEDICARE, OTHER ==
[~2020-10-21] MED LIST changes: -REGADENOSON 0.4 MG/5 ML DISP.SYRIN. IV ONE
--- NOTE | 2020-10-21 10:45 | KCIC ---
EXAM: Abdomen, single view. HISTORY: Nephrolithiasis. COMPARISON: None. FINDINGS: Frontal views of the abdomen and pelvis are obtained. There is moderate stool. There is no evidence of bowel obstruction. There are calcifications overlying the right upper quadrant due to kno wn cholelithiasis. There is a 2 mm calcification overlying the right renal shadow likely due to a pre viously demonstrated tiny nonobstructing renal stone. The inferior pole of the left kidney is obscure d due to a thoracic spinal stimulator generator. There is lumbar scoliosis and instrumented fusion an d laminectomy decompression at the lower lumbar levels. IMPRESSION: 1. Punctate right renal stone. The previously demonstrated left renal stones may be obscured due to a generator from a spinal stimulator. 2. Nonobstructive bowel gas pattern. Electronically signed by: Priya Jaime MD (10/21/2020 10:43 AM) [id number]
== END ==
LOC: KCIC 10:00
PROVIDERS: ATTEND Urology
DX: N20.0 Calculus of kidney (principal); K80.20 Calculus of gallbladder without cholecystitis without obstruction
CPT/HCPCS: 74018

== ENCOUNTER → 2021-08-11 | Day surgery (SDC) | payer MEDICARE, OTHER ==
[~2021-08-11] VITALS: Ht 190.5 cm; Wt 105.4 kg
[~2021-08-11] MED LIST changes: +AMLO-186 PO; +DOXY100T PO; +IV RINGERS,LACTATED 1000ML 1,000 ML IV SCH; +PROPOFOL 10 MG/ML (20ML) VIAL. IV ONE; +TAMS0.4C97 PO; +TRAM50TA PO
[2021-08-11 12:47] VITALS: BP 152/80
--- NOTE | 2021-08-11 13:31 | PDOC4 ---
PROCEDURE Procedure Colonoscopy/EGD Indication: dyspepsia/diarrhea/history polyps Meds: per anesthesia Findings: E--grade B reflux at 40cm. G--prepyloric erythema, biopsied. D--Normal to second portion, biopsied second portion. MONSERRAT normal. --'Scope advanced to cecum. Prep adequate. Mucosa normal. Multiple diverticula from sigmoid to ascending. One 4mm polyp distal transverse removed with forceps. Internal hemorrhoids on retroflex. Random biopsies from cecum/ascending and rectum. Antonio. well. IMP: GERD Diverticulosis Hemorrhoids. REC: Await path. Resume diet and meds as before. F/u in 2 weeks. PEYTON LINDQUIST MD Aug 11, 2021 13:31
[2021-08-11 13:48] VITALS: BP 144/83
--- NOTE | 2021-08-12 15:24 | PATHOLOGY ---
[facility] Accession Number: [id number] . 01 Material submitted: . PART A: duodenum - DUODENUM BX PART B: ANTRUM - ANTRUM BX PART C: cecum - CECUM/ASCENDING BX. Modifiers: ascending PART D: colon - DISTAL TRANSVERSE POLYP BX. Modifiers: distal, transverse PART E: rectum - RECTAL BX . 01 Clinical history: . DIARRHEA EGD COLONOSCOPY . 02 Diagnosis: A. Duodenal biopsy, second portion duodenum: - Mild nonspecific duodenitis. . B. Gastric biopsy, antrum: - Congestion and no significant inflammation. . C. Colonic mucosa, cecum/ascending colon biopsies: - No diagnostic abnormalities. . D. Colonic mucosa, transverse polyp biopsies: - Tubular adenoma. . E. Colorectal mucosa, rectal biopsies: - No diagnostic abnormalities. . (KALYNM:yuko; 08/12/2021) [facility] 08/12/2021 1029 Local . 02 Comment: Sections of the duodenal biopsy show congestion and mild chronic inflammation with a few scattered admixed neutrophils. Where best oriented, the mucosal villi show no sprue-like changes. . Sections of the gastric biopsy reveal gastric body mucosa showing congestion and no significant inflammation. A properly controlled immunoperoxidase stain for Helicobacter is negative for Helicobacter organisms. . Sections of the cecum/ascending colon biopsy reveal multiple segments of colonic mucosa. There is no evidence of a chronic destructive colitis, lymphocytic colitis or collagenous colitis. . Sections of the distal transverse colon biopsy reveal a tubular adenoma showing no high-grade dysplasia or evidence of malignancy. . Sections of the rectal biopsy reveal several segments of rectal mucosa. There is no evidence of a chronic destructive colitis, lymphocytic colitis or collagenous colitis. . (MICHAEL:yuko; 08/12/2021) . . Special stain performed: Immunoperoxidase stain for Helicobacter on B1 . 02 Electronically signed: . Doug Carcamo MD, Pathologist NPI- [id number] . 01 Gross description: . A. The specimen is received in formalin, labeled "Oertel, Nicolas, duodenum BX". Received is a single segment of light brown tissue measuring 0.4 cm in maximum dimensions. The specimen is entirely submitted in cassette A1. . B. The specimen is received in formalin, labeled "Oertel, Nicolas, antrum BX". Received is a single segment of pale song tissue measuring 0.7 cm in maximum dimensions. The specimen is entirely submitted in cassette B1. . C. The specimen is received in formalin, labeled "Oertel, Nicolas, cecum/ascending BX". Received are 5 segments of light brown tissue ranging in size from 0.3-0.4 cm in maximum dimensions. The specimen is entirely submitted in cassette C1. . D. The specimen is received in formalin, labeled "Oertel, Nicolas, distal transverse polyp BX". Received are 2 segments of light brown tissue ranging in size from 0.2-0.4 cm in maximum dimensions. The specimen is entirely submitted in cassette D1. . E. The specimen is received in formalin, labeled "Oertel, Nicolas, rectal BX". Received are 4 segments of pale song tissue ranging in size from 0.2-0.4 cm in maximum dimensions. The specimen is entirely submitted in cassette E1. ([facility]; 08/11/2021) NRI/NRI 08/11/2021 2145 Local . 02 Pathologist provided ICD-10: K29.80, K31.9, D12.3, R19.7 . 02 CPT . 895193, 470604, 540353, 765693, [id number], [id number] Specimen Comment: A courtesy copy of this report has been sent to [phone], [phone] Specimen Comment: [id number] Specimen Comment: Report sent to / DR MARTINEZ Specimen Comment: A duplicate report has been generated due to demographic updates. Performed at: 01 [facility] [address], [place] [id number] MD Manny Carreon MD Phone: [phone] Performed at: 02 [facility] [address] [place], [place] [id number] MD Doug Carcamo MD Phone: [phone]
== END | disposition home or self-care (01) ==
LOC: ENDOS 12:10
PROVIDERS: ATTEND Internal Medicine Gastroenterology
DX: R19.7 Diarrhea, unspecified (principal); R10.13 Epigastric pain; K64.0 First degree hemorrhoids; K57.30 Diverticulosis of large intestine without perforation or abscess without bleeding; D12.3 Benign neoplasm of transverse colon; K29.80 Duodenitis without bleeding; K63.89 Other specified diseases of intestine; K31.89 Other diseases of stomach and duodenum; G47.30 Sleep apnea, unspecified; M19.90 Unspecified osteoarthritis, unspecified site; Z86.010 Personal history of colon polyps; Z85.828 Personal history of other malignant neoplasm of skin; Z79.899 Other long term (current) drug therapy; Z98.890 Other specified postprocedural states
CPT/HCPCS: 43239; 45380; J2704

== ENCOUNTER → 2021-10-15 | Outpatient (CLI) | payer MEDICARE, OTHER ==
[2021-08-11 13:48] VITALS: BP 144/83
[~2021-10-15] MED LIST changes: -IV RINGERS,LACTATED 1000ML 1,000 ML IV SCH; -PROPOFOL 10 MG/ML (20ML) VIAL. IV ONE
--- NOTE | 2021-10-16 14:37 | CARD ---
MR#: [id number] Date of Study: 10/15/2021 Ordering Physician: SENAIT MOTTA, Referring Physician: SENAIT MOTTA Tech: Miriam Moctezuma [facility] APPROVED REPORT EXAM: Two-dimensional and M-mode echocardiogram with Doppler and color Doppler. Other Information Quality : AverageHR: 69bpm Rhythm : NSR INDICATION Palpitations Cardiomyopathy RISK FACTORS Hypertension Obesity Hyperlipidemia 2D DIMENSIONS RVDd2.8 (2.9-3.5cm)Left Atrium(2D)3.8 (1.6-4.0cm) IVSd1.5 (0.7-1.1cm)Aortic Root(2D)3.9 (2.0-3.7cm) LVDd4.9 (3.9-5.9cm)LVOT Diameter2.4 (1.8-2.4cm) PWd1.4 (0.7-1.1cm)LVDs3.7 (2.5-4.0cm) FS (%) 23.5 %SV52.5 ml LVEF(%)46.8 (>50%) Aortic Valve AoV Peak Hair.152.7cm/sAoV VTI31.9cm AO Peak GR.9.3mmHgLVOT Peak Hair.118.2cm/s AO Mean GR.4mmHgAVA (VMAX)3.45cm2 Mitral Valve MV E Sqwfezzg50.5cm/sMV DECEL ZDTF652va MV A Grlvaqpu51.4cm/sE/A Ratio1.1 Pulmonary Valve PV Peak Wfvrmmpa381.7cm/s Tricuspid Valve TR P. Krtvgnyl554oj/sTR Peak Gr.29mmHg LEFT VENTRICLE The left ventricle is normal size. There is mild to moderate concentric left ventricular hypertrophy. The left ventricular systolic function is normal and the ejection fraction is within normal range. E stimated EF 60%. There is normal LV segmental wall motion. Transmitral Doppler flow pattern is Grade I-abnormal relaxation pattern. RIGHT VENTRICLE The right ventricle is normal size. There is normal right ventricular wall thickness. The right ventr icular systolic function is normal. ATRIA The left atrium size is normal. The right atrium size is normal. The interatrial septum is intact wit h no evidence for an atrial septal defect or patent foramen ovale as noted on 2-D or Doppler imaging. AORTIC VALVE The aortic valve is normal in structure and function. Doppler and Color Flow revealed trace aortic re gurgitation. There is no significant aortic valvular stenosis. MITRAL VALVE The mitral valve is normal in structure and function. There is no evidence of mitral valve prolapse. There is no mitral valve stenosis. Doppler and Color-flow revealed mild mitral regurgitation. TRICUSPID VALVE The tricuspid valve is normal in structure and function. Doppler and Color Flow revealed mild tricusp id regurgitation. Estimated PAP 30-35 mmHg. There is no tricuspid valve stenosis. PULMONIC VALVE Doppler and Color Flow revealed mild pulmonic valvular regurgitation. There is no pulmonic valvular s tenosis. GREAT VESSELS The aortic root is normal in size. The ascending aorta is normal in size. The IVC is normal in size a nd collapses >50% with inspiration. PERICARDIAL EFFUSION There is no evidence of significant pericardial effusion. Critical Notification Critical Value: No <Conclusion> The left ventricular systolic function is normal and the ejection fraction is within normal range. E stimated EF 60%. There is normal LV segmental wall motion. Signed by : Prince Guevara, Electronically Approved : 10/16/2021 14:36:44
== END ==
LOC: ECHO 13:44
PROVIDERS: ATTEND Internal Medicine Cardiovascular Disease
DX: I08.8 Other rheumatic multiple valve diseases (principal); I77.819 Aortic ectasia, unspecified site
CPT/HCPCS: 93306; C8929